=== PATIENT | female | born 1995 | race Caucasian/White ===

== ENCOUNTER 2025-04-12 13:00 | Inpatient (IN) | payer SELFPAY ==
[2025-04-12] VITALS (34 sets, daily range): BP systolic 109–168; BP diastolic 61–93; PULSE 75–117; RESP 16; TEMP 36.6–36.7; BMI 31.9
--- NOTE | 2025-04-12 11:30 | US_ITS ---
WS: [id number] BIOPHYSICAL PROFILE AMNIOTIC FLUID HISTORY: BIOPHYSICAL PROFILE AND MICHAEL COMPARISON: None available. position: Vertex. Cardiac activity: 141 bpm. Cervix: On the imaging submitted the cervix is markedly foreshortened. Only transabdominal imaging is submitted and this may not be an accurate representation but the visualized cervix is estimated at 1.5 cm. Placenta: Anterior, no previa. Placenta grade: 3 Parameters are as follows: Breathin Movement: 2 Tone: 2 Fluid volume: 2 Amniotic Fluid Index: 6.9 cm US/US OB limited 31803 IMPRESSION: 1. Biophysical profile score: 8/8. 2. Low normal amniotic fluid index, 6.9 cm. 3. Placenta, grade 3, anterior. 4. Foreshortened cervix at 1.5 cm. Only transabdominal imaging is submitted and the cervix may not be completely visualized but likely cervical insufficiency.
--- NOTE | 2025-04-12 12:55 | P.HP_ITS ---
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 Reportedly the patient was seen at a midwifery in [place] yesterday and had a biophysical profile of 4 out of 8 with an MICHAEL of 4.25. She is established and has been following with Gregoria Cannon [employer]p global product leadership for this . They have attempted home remedies and membrane sweeps to induce labor but have been unsuccessful. Patient's NST is reactive and biophysical profile here today 8 out of 8 with an MICHAEL of 6.9. Present Details : 3 Para: 2 Review of Systems 2 General: Reports: Other (No bleeding, no contractions, no loss of fluid, positive movement) Medications/Allergies Home Medications ?Medication ?Instructions ?Recorded ?Confirmed ?Last Taken ?Type 04/12/25 04/12/25 History 0900 Allergies Allergy/AdvReac Type Severity Reaction Status Date / Time No Known Allergies Allergy Verified 04/12/25 12:12 [facility] PRODUCT SAFETY COORDINATOR 2 Other Female Reproductive History: Date of Last Menstrual Period: 06/25/24 Sexual History: Hx Sexually Transmitted Diseases: No History History History 2 3 Term 2 0 Miscarriages/Ectopic 0 Living Children 2 Other History: The patient's first was an at 40 weeks 1 day gestation female 7 pounds 11 ounces born at [facility] Patient's second was at 39 weeks 2 days gestation female 6 pounds 11 ounces home . The patient has not had any complications with this thus far. labs: Blood type A+ antibody negative, rubella immune, RPR nonreactive, hepatitis B nonreactive, she passed her glucose tolerance test, she is GBS negative. I do not see an official ultrasound report but they state that she had anatomy ultrasound within normal limits. Care Comments: The patient did have an 18-week ultrasound that gave a due date of 04/11/2025 which would put her at 40 weeks 1 day gestation however it was 9 days off from her stated LMP 06/25/24, thus we would stick with her LMP since her periods were considered regular and her LMP certain. Vitals/I&O/Wt Last Vital Signs Pulse 76 04/12/25 12:41 BP 113/70 04/12/25 12:41 Weight last 48 hrs Weight 87.09 kg Physical Exam 2 Narrative: Alert, resting in bed quietly, heart regular rate and rhythm, lungs clear to auscultation bilaterally, abdomen is gravid and nontender Data 04/12/25 14:40 Results Labs OB ([facility]): 2 Obstetrics US 04/12/25 Blood Type A Positive 04/12/25 Antibody Screen Negative 04/12/25 Hct, (36-47) 38.1 % 04/12/25 Hgb, (11.27-16.99) 12.80 g/dL 04/12/25 Rho(D) Type Rh positive 04/12/25 Plt Count, (157-399) 166 10^3/cmm 04/12/25 A&P Assessment and plan 1. Post term , 41 weeks: The patient is 41 weeks 4 days today. Today's biophysical was 8 out of 8 and NST was reactive. She is here with her evp global product leadership who admits that out of hospital methods have not proceeded to induce her labor. I discussed that at this gestation it is advisable to induce labor due to the risk of complications postdates. Patient is agreeable to staying and starting on Pitocin. Her cervix is reported to be 2 cm and 60% effaced per Gregoria Cannon. Plan: Induction of labor and delivery PDMP PDMP Reviewed: Not Reviewed Attestations 2 Medical Necessity Statement*: Induction of labor and delivery Coding Level of Care Code Acute Code for Chg Fwd Diagnoses Post term , 41 weeks O48.0; Z3A.41
[2025-04-12 14:53] LABS: Hematocrit 38.1 % (36-47); Hemoglobin 12.80 g/dL (11.27-16.99); Mean Corpuscular HGB Conc 33.6 g/dL (30-55); Mean Corpuscular Hemoglobin 32.6 pg (27-33); Mean Corpuscular Volume 96.9 fl (85-98); Nucleated Red Blood Cells % 0 %; Platelet Count 166 10^3/cmm (157-399); Red Blood Count 3.93 10^6/uL (3.85-5.65); White Blood Count 10.44 10^3/uL (3.29-11.43)
[2025-04-12] MEDS: oxytocin 30 UNIT/500 ML BAG IV (14:56)
[2025-04-13] VITALS (16 sets, daily range): BP systolic 97–124; BP diastolic 61–77; PULSE 88–127; RESP 16–18; TEMP 36.4–37.1; O2SAT 95–99
--- NOTE | 2025-04-13 00:04 | PM.DELIVERY ---
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 See H&P for details. Delivery: This is a 29-year-old G3, P2 at 41 weeks 4 days gestation who presented as a walk-in for postdates with report of oligohydramnios and biophysical profile 4 out of 8 -done at a midwifery clinic in [place] yesterday. Fortunately, NST was reactive and her biophysical done here was 8 out of 8 with an MICHAEL of 6.9. Since she was postdates decision was made to proceed with induction. She was started on Pitocin. Her labor progressed well with the Pitocin. She declined pain management. When she was 7 cm dilated and -1 station she underwent artificial rupture of membranes with clear fluid. Less than 30 minutes later she had a normal spontaneous vaginal delivery of a viable male infant weight 2370 g, 5 pounds 4 ounces, Apgars 8 and 9 over an intact perineum. The infant had a loose nuchal x 2 with a body cord and a true knot. He was suctioned at delivery and placed on the mother's chest. He appeared very thin and growth restricted. After about 3 to 4 minutes the cord was clamped and cut. Cord blood was obtained. The placenta was delivered grossly intact and normal to inspection. There was a large clot that immediately followed delivery of the placenta. Mother and infant were doing well after delivery. History History History 3 Term 2 0 Miscarriages/Ectopic 0 Living Children 2 Other History: The patient's first was an at 40 weeks 1 day gestation female infant 7 pounds 11 ounces [facility] at [facility] Patient's second was at 39 weeks 2 days gestation female 6 pounds 11 ounces home . The patient has not had any complications with this thus far. labs: Blood type A+ antibody negative, rubella immune, RPR nonreactive, hepatitis B nonreactive, she passed her glucose tolerance test, she is GBS negative. I do not see an official ultrasound report but they state that she had anatomy ultrasound within normal limits. A&P Assessment and plan 1. Normal spontaneous vaginal delivery: PDMP PDMP Reviewed: Not Reviewed Coding Level of Care Code Acute Code for Chg Fwd Diagnoses Normal spontaneous vaginal delivery O80
--- NOTE | 2025-04-13 08:12 | PM.DCS ---
Discharge Providers Date of Admission: 04/12/25 13:00 Date of Discharge: April 13, 2025 Attending Provider at Admission: Kristy Mejias MD Attending Provider at Discharge: Kristy Mejias MD Diagnoses at Discharge Discharge Diagnosis 1. Normal spontaneous vaginal delivery: Reason for Visit Reason for Visit: Low BPP Hospital Course Hospital Course This is a 29-year-old G3 now P3 who was a walk-in patient from a midwifery at 41 weeks 3 days gestation with concern for oligohydramnios and biophysical profile 4 out of 8 1 day prior. NST was reactive and biophysical profile was 8 out of 8 with an MICHAEL of 6.9. Since the patient was postdates decision was made to proceed with induction. She was started on Pitocin and had a normal spontaneous vaginal delivery of a viable male that appeared to be growth restricted. He was 5 pounds 4 ounces. On day #1 she was doing well. She was ambulating, tolerating a regular diet, had average vaginal bleeding and was comfortable with discharge home Physical Exam Narrative: Alert and oriented, sitting up in bed with the infant and eating breakfast. Heart regular rate and rhythm, lungs clear to auscultation bilaterally, abdomen is soft and nontender, fundus is firm, extremities have trace edema no calf tenderness Discharge Data Studies Completed and Pending Completed Studies During Hospitalization Category Date Time Status US OB limited 98061 Urgent Ultrasound 04/12/25 11:30 Completed Pending at discharge Category Date Time Status Hemagram Timed Lab 04/13/25 12:12 Uncollected Radiology Impressions Obstetrics Ultrasound 04/12/25 11:30 IMPRESSION: 1. Biophysical profile score: 8/8. 2. Low normal amniotic fluid index, 6.9 cm. 3. Placenta, grade 3, anterior. 4. Foreshortened cervix at 1.5 cm. Only transabdominal imaging is submitted and the cervix may not be completely visualized but likely cervical insufficiency. Laboratory Results WBC 10.44 10^3/uL (3.29-11.43) 04/12/25 14:40 RBC 3.93 10^6/uL (3.85-5.65) 04/12/25 14:40 Hgb 12.80 g/dL (11.27-16.99) 04/12/25 14:40 Hct 38.1 % (36-47) 04/12/25 14:40 MCV 96.9 fl (85-98) 04/12/25 14:40 MCH 32.6 pg (27-33) 04/12/25 14:40 MCHC 33.6 g/dL (30-55) 04/12/25 14:40 RDW 13.0 % (12.1-15.1) 04/12/25 14:40 Plt Count 166 10^3/cmm (157-399) 04/12/25 14:40 MPV 13.0 fL (7.4-10.4) H 04/12/25 14:40 Neut % (Auto) 71.1 % 04/12/25 14:40 Lymph % (Auto) 20.2 % 04/12/25 14:40 Bailey % (Auto) 7.1 % 04/12/25 14:40 Eos % (Auto) 0.8 % 04/12/25 14:40 Baso % (Auto) 0.4 % 04/12/25 14:40 Neut # (Auto) 7.43 10^3/uL (1.8-7.7) 04/12/25 14:40 Lymph # (Auto) 2.1 10^3/uL (0.8-4.8) 04/12/25 14:40 Bailey # (Auto) 0.7 10^3/uL (0.2-0.9) 04/12/25 14:40 Eos # (Auto) 0.1 10^3/uL (0.0-0.8) 04/12/25 14:40 Baso # (Auto) 0.0 10^3/uL (0.0-0.1) 04/12/25 14:40 Nucleated RBC % (auto) 0 % 04/12/25 14:40 Nucleated RBCs # 0.0 /100WBC 04/12/25 14:40 Blood Type A Positive 04/12/25 14:40 Rho(D) Type Rh positive 04/12/25 14:40 Antibody Screen Negative 04/12/25 14:40 Vitals Last Vital Signs Temp 98.3 F 04/13/25 05:20 Pulse 105 H 04/13/25 05:20 Resp 16 04/13/25 05:20 BP 103/68 04/13/25 05:20 Pulse Ox 96 04/13/25 05:20 O2 Del Method Room Air 04/13/25 05:20 Discharge Plan Discharge Patient Disposition: Home Condition: Stable Prescriptions: Continued 1 tab PO DAILY Discharge Order = DC NOW: Discharge Order (Routine); Ordered 04/13/25 Ordered By: Kristy Mejias Referrals: Kristy Mejias MD [Physician, Family Practice] Referral Note: Patient will follow-up with her blowing engineer 4 to 6 weeks Discharge Diet: Usual diet Discharge Activity: Limit activity as instructed Patient Instructions: Shaken Baby Syndrome (DC), Jaundice in Newborns (DC), Lay Person CPR on Newborns (DC), Your 's Appearance (DC), Safe Sleeping for Infants (DC), Phototherapy for Jaundice in Newborns (DC), OB Discharge Report, OB Food/Drug Interaction Guide, OB Care at Home, Opioid Safety, OB Vaginal Deliveries, Patient Portal & Renee Instructions Activity Restrictions/Additional Instructions: Nothing per vagina for 6 weeks Discharge Attestations Time Spent in Discharge Care*: less than 30 min Quality Metrics Clinical Quality Measures [ No reported AMI, CVA or VTE this stay] Coding Level of Care Code Acute Code for Chg Fwd Diagnoses Normal spontaneous vaginal delivery O80
[2025-04-13] MEDS: PRENATAL VIT NO.130/IRON/FOLIC 1 EACH TABLET PO (09:40)
[2025-04-13 13:17] LABS: Hematocrit 33.0 % (36-47); Hemoglobin 11.60 g/dL (11.27-16.99); Mean Corpuscular HGB Conc 35.2 g/dL (30-55); Mean Corpuscular Hemoglobin 34.2 pg (27-33); Mean Corpuscular Volume 97.3 fl (85-98); Platelet Count 154 10^3/cmm (157-399); Red Blood Count 3.39 10^6/uL (3.85-5.65); White Blood Count 12.75 10^3/uL (3.29-11.43)
[2025-04-13] MEDS: benzocaine-menthol 78 gm Canister 1 SPRAY TOPICAL (15:12)
== END 2025-04-13 21:06 | disposition home or self-care (01) | DRG 806 ==
LOC: OBGYN 13:06 → OPOB 04-13 05:44 → OBGYN 04-13 05:45
PROVIDERS: Admitting Provider Family Medicine; Visit Provider Family Medicine
DX: O76 Abnormality in fetal heart rate and rhythm complicating labor and delivery (principal); O41.03X0 Oligohydramnios, third trimester, not applicable or unspecified; Z37.0 Single live birth; O48.0 Post-term pregnancy; Z3A.41 41 weeks gestation of pregnancy; O69.81X0 Labor and delivery complicated by cord around neck, without compression, not applicable or unspecified
CPT/HCPCS: 36415; 59025; 59409; 76815; 85025; 85027; 86850; 86900; 99211; J2590; J7121; J9999